=== PATIENT | female | born 1965 | race Caucasian/White ===

== ENCOUNTER 2017-05-17 19:17 | Emergency (ER) | payer MEDICAID ==
[~2017-05-17] VITALS: Ht 157.5 cm; Wt 78.0 kg
[~2017-05-17 19:17] MED LIST: IBUP-1542 PO; NITR-58 PO; PHEN-538 PO
[2017-05-17 19:25] VITALS: Ht 157.5 cm; Wt 78.0 kg
[2017-05-17] MEDS ORDERED: morphine 4 MG/ML VIAL IV STA (22:17)
[2017-05-17] MEDS ORDERED: SOD CHLORIDE 0.9% 1,000 ML IV STA (22:17)
[2017-05-17] MEDS ORDERED: ONDANSETRON 4 MG INJ IV STA (22:17)
[2017-05-17 22:47] LABS: ADD SCAN DIFF NO; BASOPHILS % 0.2 % (0.0-2.0); EOSINOPHILS # 0.1 10^3/ul (0.0-0.5); EOSINOPHILS % 1.4 % (0.0-7.0); HEMATOCRIT 42.9 % (37.0-47.0); HEMOGLOBIN 14.4 g/dl (12.0-16.0); LYMPHOCYTES # 2.9 10^3/ul (0.8-2.9); LYMPHOCYTES % 29.2 % (15.0-51.0); MEAN CORPUSCULAR HEMOGLOBIN 30.4 pg (29.0-33.0); MEAN CORPUSCULAR HGB CONC 33.6 g/dl (32.0-37.0); MEAN CORPUSCULAR VOLUME 90.7 fl (82.0-101.0); MEAN PLATELET VOLUME 9.7 fl (7.4-10.4); MONOCYTE # 0.8 10^3/ul (0.3-0.9); MONOCYTES % 8.1 % (0.0-11.0); NEUTROPHIL # 6.1 10^3/ul (1.6-7.5); NEUTROPHILS % 60.8 % (39.0-77.0); PLATELET COUNT 292 10^3/UL (140-415); RED BLOOD COUNT 4.73 10^6/ul (4.20-5.40); RED CELL DISTRIBUTION WIDTH 11.8 % (11.5-14.5)
[2017-05-17 22:52] LABS: ADD UMIC YES; UR ASCORBIC ACID NEGATIVE (NEGATIVE); UR BACTERIA FEW /HPF (NONE SEEN); UR BILIRUBIN (Dip) NEGATIVE (NEGATIVE); UR BLOOD (Dip) 1+ mg/dL (NEGATIVE); UR CLARITY CLEAR (CLEAR); UR COLOR STRAW (YELLOW); UR GLUCOSE (Dip) NEGATIVE (NEGATIVE); UR KETONES (Dip) NEGATIVE (NEGATIVE); UR LEUKOCYTE ESTERASE (Dip) 3+ Leu/ul (NEGATIVE); UR NITRITE (Dip) NEGATIVE (NEGATIVE); UR RBC 2 /HPF (0-5); UR SPECIFIC GRAVITY (Dip) 1.009 (1.003-1.030); UR SQUAMOUS EPITHELIAL CELL FEW /HPF (FEW); UR TOTAL PROTEIN (Dip) NEGATIVE (NEGATIVE); UR UROBILINOGEN (Dip) NEGATIVE (NEGATIVE)
--- NOTE | 2017-05-17 23:07 | RADRPT ---
PROCEDURE: US Abdomen (right upper quadrant). CLINICAL INDICATION: Right upper quadrant abdomen pain. TECHNIQUE: Multiple real-time longitudinal and transverse images of the right upper quadrant of th e abdomen were acquired utilizing a curved array transducer. Images were reviewed on a high-resoluti on PACS workstation. COMPARISON: 06/03/2014. FINDINGS: The liver is normal in size and diffusely increased in echogenicity. There is no focal hepatic lesion. There is a 1.2 cm gallstone in the gallbladder. There is no gallbladder wall thickening or fluid ar ound the gallbladder. The bile ducts are normal with the common bile duct measuring 3.1 mm in diameter. The visualized portions of the pancreas are unremarkable with obscuration of the tail of the pancrea s. No free fluid is present. The right kidney measures 10.1 cm. There is normal echogenicity of the right kidney. There is no perinephric fluid collection. No hydronephrosis, mass, or calculus is seen. IMPRESSION: 1. Fatty metamorphosis of the liver. 2. Gallstone in the gallbladder. No evidence of cholecystitis. 3. Otherwise normal right upper quadrant abdomen ultrasound. RPTAT: QQ .Ken Garcia MD, MD Date Time Electronically viewed and signed by .Ken Garcia MD, MD on 05/17/2017 23:06 .R/
[2017-05-17 23:46] LABS: ALBUMIN 4.8 g/dl (3.3-4.9); ALBUMIN/GLOBULIN RATIO 0.97; BILIRUBIN,INDIRECT 0.5 mg/dl (0-1.1); BILIRUBIN,TOTAL 0.5 mg/dl (0.2-1.3); CREATININE 0.73 mg/dl (0.44-1.00); POTASSIUM 3.9 mmol/L (3.5-5.1); TOTAL PROTEIN 9.7 g/dl (6.1-8.1)
[2017-05-18] MEDS ORDERED: ACET-141 PO (00:09)
[2017-05-18] MEDS ORDERED: TRAM50TA2 PO (02:05)
[2017-05-18] MEDS ORDERED: ONDA4TAB14 PO (02:05)
--- NOTE | 2017-05-18 02:05 | ERD ---
ER Documentation Chief Complaint Date/Time DATE: 05/18/17 TIME: 02:04 Chief Complaint RUQ abd pain with n/v( no active vomiting now) HPI This is a 51-year-old female brought regarding all pain with nausea and vomiting today. 2 episodes of vomiting nonbilious and nonbloody. Pain is mild to moderate in intensity. No active vomiting currently. No fevers no chills. No sick contacts ROS All systems reviewed and are negative except as per history of present illness. Medications Home Meds Reported Medications Acetaminophen* (Acetaminophen*) 500 MG Extra Strength Tablet, 500 MG PO Q4H Y for PAIN AND OR ELEVATED TEMP, TAB 05/18/17 Discontinued Scripts Ibuprofen* (Motrin*) 600 Mg Tab, 600 MG PO BID, #30 TAB 0 Refills Prov:RAY VAN PA-C 12/23/15 Phenazopyridine Hcl* (Pyridium*) 200 Mg Tab, 200 MG PO TID Y for DYSURIA, #6 TAB Prov:BRANDO FARLEY NP 06/23/15 Nitrofurantoin Monohyd Macrocr* (Macrobid*) 100 Mg Capsr, 100 MG PO BID for 7 Days, CAP Prov:BRANDO FARLEY NP 06/23/15 Allergies Allergies: Coded Allergies: ciprofloxacin (Unverified Allergy, Unknown, 05/18/17) rash PMhx/Soc History of Surgery: No Anesthesia Reaction: No Hx Neurological Disorder: No Hx Respiratory Disorders: No Hx Cardiac Disorders: No Hx Psychiatric Problems: No Hx Miscellaneous Medical Probl: Yes (GASTRITIS, GALLSTONES) Hx Alcohol Use: No Hx Substance Use: No Hx Tobacco Use: No Smoking Status: Never smoker Physical Exam Vitals Vital Signs Date Time Temp Pulse Resp B/P Pulse Ox O2 Delivery O2 Flow Rate FiO2 05/18/17 01:39 78 16 131/76 100 Room Air 05/18/17 00:00 82 16 115/62 99 Room Air 05/17/17 19:25 98.6 91 20 128/60 98 Physical Exam Const: [] Head: Atraumatic Eyes: Normal Conjunctiva ENT: Normal External Ears, Nose and Mouth. Neck: Full range of motion..~ No meningismus. Resp: Clear to auscultation bilaterally Cardio: Regular rate and rhythm, no murmurs Abd: Soft, non tender, non distended. Normal bowel sounds Skin: No petechiae or rashes Back: No midline or flank tenderness Ext: No cyanosis, or edema Neur: Awake and alert Psych: Normal Mood and Affect Result Diagram: 05/17/17222905/17/172229 Results 24 hrs Laboratory Tests Test 05/17/17 22:30 White Blood Count 10.010^3/ul Red Blood Count 4.7310^6/ul Hemoglobin 14.4g/dl Hematocrit 42.9% Mean Corpuscular Volume 90.7fl Mean Corpuscular Hemoglobin 30.4pg Mean Corpuscular Hemoglobin Concent 33.6g/dl Red Cell Distribution Width 11.8% Platelet Count 37487^3/UL Mean Platelet Volume 9.7fl Neutrophils % 60.8% Lymphocytes % 29.2% Monocytes % 8.1% Eosinophils % 1.4% Basophils % 0.2% Nucleated Red Blood Cells % 0.0/100WBC Neutrophils # 6.110^3/ul Lymphocytes # 2.910^3/ul Monocytes # 0.810^3/ul Eosinophils # 0.110^3/ul Basophils # 0.010^3/ul Nucleated Red Blood Cells # 0.010^3/ul Urine Color STRAW Urine Clarity CLEAR Urine pH 8.0 Urine Specific [place] 1.009 Urine Ketones NEGATIVEmg/dL Urine Nitrite NEGATIVEmg/dL Urine Bilirubin NEGATIVEmg/dL Urine Urobilinogen NEGATIVEmg/dL Urine Leukocyte Esterase 3+Jojo/ul Urine Microscopic RBC 2/HPF Urine Microscopic WBC 6/HPF Urine Squamous Epithelial Cells FEW/HPF Urine Bacteria FEW/HPF Urine Hemoglobin 1+mg/dL Urine Glucose NEGATIVEmg/dL Urine Total Protein NEGATIVEmg/dl Sodium Level 144mmol/L Potassium Level 3.9mmol/L Chloride Level 99mmol/L Carbon Dioxide Level 27mmol/L Anion Gap 22 Blood Urea Nitrogen 10mg/dl Creatinine 0.73mg/dl Glucose Level 92mg/dl Calcium Level 10.0mg/dl Total Bilirubin 0.5mg/dl Direct Bilirubin 0.00mg/dl Indirect Bilirubin 0.5mg/dl Aspartate Amino Transf (AST/SGOT) 38IU/L Alanine Aminotransferase (ALT/SGPT) 53IU/L Alkaline Phosphatase 113IU/L Total Protein 9.7g/dl Albumin 4.8g/dl Globulin 4.90g/dl Albumin/Globulin Ratio 0.97 Lipase 104U/L Current Medications Medications (Trade) Dose Ordered Sig/Shannon Route PRN Reason Start Time Stop Time Status Last Admin Dose Admin Sodium Chloride (NS) 1,000 ml @ 1,000 mls/hr Q1H STAT IV 05/17/17 22:17 05/17/17 23:16 DC 05/17/17 22:37 Morphine Sulfate (morphine) 4 mg ONCE STAT IV 05/17/17 22:17 05/17/17 22:18 DC 05/17/17 22:37 Ondansetron HCl (Zofran Inj) 4 mg ONCE STAT IV 05/17/17 22:17 05/17/17 22:18 DC 05/17/17 22:37 Procedures/MDM Ultrasound shows gallstone Medical decision-makin-year-old female with biliary colic. No evidence of cholecystitis. Pain resolved. Patient be discharged home with pain medication. Told to follow-up in 8 hours for serial abdominal exams to which the patient agrees. At this point clinically stable. Again told to follow-up in 8 hours for serial abdominal exams brought to return sooner for any return of pain Departure Diagnosis: Primary Impression: Abdominal pain Abdominal location: right upper quadrant Qualified Code: R10.11 - Right upper quadrant abdominal pain Additional Impression: Gallstones Condition: Stable MIKE QUIJANO May 18, 2017 02:05
[2017-05-18 02:15] VITALS: BP 117/73; PULSE 84; RESP 18
== END 2017-05-18 02:15 | disposition home or self-care (01) ==
LOC: E/R 19:17
DX: R10.11 Right upper quadrant pain (principal); K80.20 Calculus of gallbladder without cholecystitis without obstruction; R11.2 Nausea with vomiting, unspecified
CPT/HCPCS: 76705; 80053; 81001; 83690; 85025; J2270; J2405; J7030; 36415; 96374; 96375

== ENCOUNTER 2017-09-10 12:23 | Emergency (ER) | END 2017-09-10 14:15 | disposition home or self-care (01) | DX: N30.01 Acute cystitis with hematuria (principal) | CPT/HCPCS: 81003; Z7502 ==

== ENCOUNTER 2017-10-29 12:10 | Emergency (ER) | END 2017-10-29 16:44 | disposition home or self-care (01) ==